=== PATIENT | male | born 1975 | race African-American/Black ===

== ENCOUNTER → 2017-11-01 | Outpatient (CLI) | payer MEDICARE ==
[2017-11-01 17:49] LABS: ALANINE AMINOTRANSFERASE 27 U/L (21-72); ALBUMIN 4.1 g/dL (3.5-5.0); ALKALINE PHOSPHATASE 65 U/L (38-126); ANION GAP 10 (5-19); ASPARTATE AMINO TRANSFERASE 20 U/L (17-59); BILIRUBIN,DIRECT 0.4 mg/dL (0.0-0.4); BILIRUBIN,TOTAL 0.4 mg/dL (0.2-1.3); BLOOD UREA NITROGEN 14 mg/dL (7-20); CALCIUM 9.7 mg/dL (8.4-10.2); CARBON DIOXIDE 30 mmol/L (22-30); CHLORIDE 102 mmol/L (98-107); CHOLESTEROL 177.51 mg/dL (0-200); GLUCOSE 83 mg/dL (75-110); POTASSIUM 4.1 mmol/L (3.6-5.0); TOTAL PROTEIN 7.5 g/dL (6.3-8.2); TRIGLYCERIDES 127 mg/dL (<150)
[2017-11-01 18:00] LABS: DIRECT LDL 113 mg/dL (<100)
[2017-11-03 12:37] LABS: CREATININE URINE 227.5 mg/dL (Not Estab.)
[2017-11-03 13:55] LABS: MICROALBUMIN URINE 1097.2 ug/mL (Not Estab.)
== END ==
LOC: OD 16:23
PROVIDERS: ATTEND Family Medicine
DX: E11.9 Type 2 diabetes mellitus without complications (principal); E78.5 Hyperlipidemia, unspecified; E03.9 Hypothyroidism, unspecified
CPT/HCPCS: 36415; 80053; 80061; 82043; 82570; 83036; 84443

== ENCOUNTER 2018-01-25 22:24 | Observation (INO) | payer MEDICARE ==
--- NOTE | 2018-01-25 23:32 | ER Document Report ---
ED General - General Chief Complaint: Shortness Of Breath Stated Complaint: DIFFICULTY BREATHING Time Seen by Provider: 01/25/18 23:03 Mode of Arrival: Ambulatory Information source: Patient TRAVEL OUTSIDE OF THE [place] IN LAST 30 DAYS: No - HPI Patient complains to provider of: "sick" Onset: Other - few days ago Onset/Duration: Gradual Associated symptoms: Productive cough - tannish sputum, Headache, Nausea. denies: Chest pain, Earache, Fever, Shortness of breath, Sweating, Weakness Exacerbated by: Denies Relieved by: Denies Recently seen / treated by doctor: No Notes: 42-year-old -Irish male presents with a complaint of very sick. He states that he is coughing up brownish sputum. He states that his son came home with a viral infection and passed it to him. Patient denies fevers, chest pain, diarrhea, abdominal pain. Past medical history significant for morbid obesity hypertension diabetes high cholesterol hypothyroidism pituitary tumor patients on CPAP nightly for obstructive sleep apnea - Related Data Allergies/Adverse Reactions: No Known Allergies Allergy (Unverified 01/25/18 23:59) Past Medical History - General Information source: Patient - Social History Smoking Status: Never Smoker Frequency of alcohol use: Social Drug Abuse: None Lives with: Family Family History: Hypertension Patient has suicidal ideation: No - Past Medical History Cardiac Medical History: Reports: None Pulmonary Medical History: Reports: Hx Sleep Apnea EENT Medical History: Reports: None Neurological Medical History: Reports: None Endocrine Medical History: Reports: Hx Diabetes Mellitus Type 2 Renal/ Medical History: Reports: None Malignancy Medical History: Reports None GI Medical History: Reports: None Musculoskeltal Medical History: Reports None Skin Medical History: Reports None Psychiatric Medical History: Reports: None Traumatic Medical History: Reports: None Infectious Medical History: Reports: None Review of Systems - Review of Systems Constitutional: No symptoms reported EENT: No symptoms reported Cardiovascular: See HPI Respiratory: See HPI Gastrointestinal: Nausea Genitourinary: No symptoms reported Male Genitourinary: No symptoms reported Musculoskeletal: No symptoms reported Skin: See HPI, Lesions Hematologic/Lymphatic: No symptoms reported Neurological/Psychological: No symptoms reported Physical Exam - Vital signs Vitals: Resp Pulse Ox 27 H 98 01/25/18 23:54 01/25/18 23:54 Pulse ox 97% on room air respiratory rate 18 blood pressure 190/113 temperature 98.7 - Notes Notes: PHYSICAL EXAMINATION: GENERAL: Well-appearing, well-nourished and in no acute distress. Patient is morbidly obese he sitting up in his bed playing games on his phone in no acute distress HEAD: Atraumatic, normocephalic. EYES: Pupils equal round and reactive to light, extraocular movements intact, sclera anicteric, conjunctiva are normal. ENT: Nares patent, oropharynx clear without exudates. Moist mucous membranes. biLateral TMs within normal limits NECK: Normal range of motion, supple without lymphadenopathy LUNGS: Breath sounds clear to auscultation bilaterally and equal. No wheezes rales or rhonchi. HEART: Regular rate and rhythm without murmurs ABDOMEN: Morbidly obese. Multiple 1 cm scarred carbuncles over abd wall. Soft, nontender, nondistended abdomen. No guarding, no rebound. No masses appreciated. Musculoskeletal: Normal range of motion, no pitting or edema. No cyanosis. NEUROLOGICAL: Cranial nerves grossly intact. Normal speech, normal gait. Normal sensory, motor exams PSYCH: Normal mood, normal affect. SKIN: Warm, Dry, normal turgor. Course - Re-evaluation Re-evalutation: 01/26/18 00:19 His blood pressure is now 190/81. I did not give him medications in addition to his lisinopril and hydrochlorothiazide that he takes on a daily basis. I did note when looking through the patient's medications that he is taking an oral decongestant with phenylephrine in it. I did tell him please do not take this medication anymore, it could cause additional hypertension. Patient states his last dose was approximately 8 PM tonight. 01/26/18 01:06 Did review the chest x-ray and I feel that there is some vascular congestion as well as cardiomegaly. 01/26/18 01:11 Labs- All tests 24 hr 01/25/18 01/25/18 01/25/18 23:50 23:50 23:50 WBC 9.8 RBC 4.56 Hgb 11.6 L Hct 35.8 L MCV 79 L MCH 25.5 L MCHC 32.5 RDW 15.7 H Plt Count 257 Seg Neutrophils % 59.1 Lymphocytes % 25.0 Monocytes % 8.5 Eosinophils % 5.8 Basophils % 1.6 Absolute Neutrophils 5.8 Absolute Lymphocytes 2.5 Absolute Monocytes 0.8 Absolute Eosinophils 0.6 Absolute Basophils 0.2 Sodium 143.3 Potassium 3.9 Chloride 105 Carbon Dioxide 30 Anion Gap 8 BUN 15 Creatinine 0.99 Est GFR ( Amer) > 60 Est GFR (Non-Af Amer) > 60 Glucose 123 H Calcium 9.4 Total Bilirubin 0.1 L Direct Bilirubin 0.1 Neonat Total Bilirubin Not Reportable Neonat Direct Bilirubin Not Reportable Neonat Indirect Bili Not Reportable AST 19 ALT 25 Alkaline Phosphatase 82 Troponin I 0.014 NT-Pro-B Natriuret Pep 203 H Total Protein 6.7 Albumin 3.6 Urine Color Urine Appearance Urine pH Ur Specific [place] Urine Protein Urine Glucose (UA) Urine Ketones Urine Blood Urine Nitrite Urine Bilirubin Urine Urobilinogen Ur Leukocyte Esterase Urine WBC (Auto) Urine RBC (Auto) Squamous Epi Cells Auto Urine Mucus (Auto) Urine Ascorbic Acid 01/25/18 23:50 WBC RBC Hgb Hct MCV MCH MCHC RDW Plt Count Seg Neutrophils % Lymphocytes % Monocytes % Eosinophils % Basophils % Absolute Neutrophils Absolute Lymphocytes Absolute Monocytes Absolute Eosinophils Absolute Basophils Sodium Potassium Chloride Carbon Dioxide Anion Gap BUN Creatinine Est GFR ( Amer) Est GFR (Non-Af Amer) Glucose Calcium Total Bilirubin Direct Bilirubin Neonat Total Bilirubin Neonat Direct Bilirubin Neonat Indirect Bili AST ALT Alkaline Phosphatase Troponin I NT-Pro-B Natriuret Pep Total Protein Albumin Urine Color YELLOW Urine Appearance CLEAR Urine pH 6.0 Ur Specific [place] 1.015 Urine Protein 100 H Urine Glucose (UA) NEGATIVE Urine Ketones NEGATIVE Urine Blood NEGATIVE Urine Nitrite NEGATIVE Urine Bilirubin NEGATIVE Urine Urobilinogen NEGATIVE Ur Leukocyte Esterase NEGATIVE Urine WBC (Auto) 2 Urine RBC (Auto) 2 Squamous Epi Cells Auto 1 Urine Mucus (Auto) RARE Urine Ascorbic Acid NEGATIVE Chest X-Ray 01/26/18 00:00 IMPRESSION: 1. No acute pulmonary process identified. 01/26/18 01:11 Patient does have mild vascular congestion as well as cardiomegaly on exam. Risk factors include obesity hypertension diabetes high cholesterol as well as obstructive sleep apnea. He does have continued hypertension which may partially be due to his phenylephrine ingestion. I did talk to the hospitalist will put him into the hospital bring down his blood pressure rule him out for cardiac event. Pt. is agreeable to this plan. - Vital Signs Vital signs: Temp Pulse Resp BP Pulse Ox 19 194/111 H 98 01/26/18 00:41 01/26/18 00:41 01/26/18 00:41 - Laboratory Result Diagrams: 01/25/18 23:50 01/25/18 23:50 Laboratory results interpreted by me: 01/25/18 01/25/18 01/25/18 23:50 23:50 23:50 Hgb 11.6 L Hct 35.8 L MCV 79 L MCH 25.5 L RDW 15.7 H Glucose 123 H Total Bilirubin 0.1 L NT-Pro-B Natriuret Pep 203 H Urine Protein 01/25/18 23:50 Hgb Hct MCV MCH RDW Glucose Total Bilirubin NT-Pro-B Natriuret Pep Urine Protein 100 H Discharge - Discharge Clinical Impression: Hypertensive urgency, Carbuncle and furuncle Condition: Stable Disposition: ADMITTED OBSERVATION Admitting Provider: Hospitalist - Dr. Paul Unit Admitted: Telemetry Referrals: IRINA SILVA MD [Primary Care Provider] - Follow up as needed
[2018-01-26 00:10] LABS: ABSOLUTE BASOPHILS # (AUTO) 0.2 10^3/uL (0.0-0.2); ABSOLUTE EOSINOPHILS # (AUTO) 0.6 10^3/uL (0.0-0.6); ABSOLUTE LYMPHOCYTES (AUTO) 2.5 10^3/uL (0.5-4.7); ABSOLUTE MONOCYTES (AUTO) 0.8 10^3/uL (0.1-1.4); ABSOLUTE NEUT (AUTO) 5.8 10^3/uL (1.7-8.2); BASOPHILS % (AUTO) 1.6 % (0-2); EOSINOPHILS % (AUTO) 5.8 % (0-6); HEMATOCRIT 35.8 % (37.9-51.0); HEMOGLOBIN 11.6 g/dL (13.5-17.0); MEAN CORPUSCULAR HEMOGLOBIN 25.5 pg (27.0-33.4); MEAN CORPUSCULAR HGB CONC 32.5 g/dL (32.0-36.0); MEAN CORPUSCULAR VOLUME 79 fl (80-97); MONOCYTES % (AUTO) 8.5 % (3-13); PLATELET COUNT 257 10^3/uL (150-450); RED BLOOD COUNT 4.56 10^6/uL (4.35-5.55); RED CELL DISTRIBUTION WIDTH 15.7 % (11.5-14.0); SEGMENTED NEUTROPHILS % (AUTO) 59.1 % (42-78); TOTAL CELLS COUNTED % (AUTO) 100 %; WHITE BLOOD COUNT 9.8 10^3/uL (4.0-10.5)
[2018-01-26] MEDS ORDERED: SULFAMETHOXAZOLE/TRIMETHOPRIM 800-160 MG TABLET PO ONE (00:20)
[2018-01-26 00:23] LABS: ALANINE AMINOTRANSFERASE 25 U/L (21-72); ALBUMIN 3.6 g/dL (3.5-5.0); ALKALINE PHOSPHATASE 82 U/L (38-126); ANION GAP 8 (5-19); ASPARTATE AMINO TRANSFERASE 19 U/L (17-59); BILIRUBIN,DIRECT 0.1 mg/dL (0.0-0.4); BILIRUBIN,TOTAL 0.1 mg/dL (0.2-1.3); BLOOD UREA NITROGEN 15 mg/dL (7-20); CALCIUM 9.4 mg/dL (8.4-10.2); CARBON DIOXIDE 30 mmol/L (22-30); CHLORIDE 105 mmol/L (98-107); GLUCOSE 123 mg/dL (75-110); POTASSIUM 3.9 mmol/L (3.6-5.0); SODIUM 143.3 mmol/L (137-145); TOTAL PROTEIN 6.7 g/dL (6.3-8.2)
[2018-01-26 00:24] LABS: APPEARANCE,URINE CLEAR; BILIRUBIN,URINE NEGATIVE (NEGATIVE); COLOR,URINE YELLOW; GLUCOSE, URINE NEGATIVE (NEGATIVE); KETONES,URINE NEGATIVE (NEGATIVE); LEUKOCYTE ESTERASE,URINE NEGATIVE (NEGATIVE); NITRITE,URINE NEGATIVE (NEGATIVE); PROTEIN,URINE 100 mg/dL (NEGATIVE); URINE SPECIFIC GRAVITY 1.015; UROBILINOGEN,URINE NEGATIVE mg/dL (<2.0)
[2018-01-26 00:35] LABS: TROPONIN I 0.014 ng/mL
--- NOTE | 2018-01-26 00:51 | RADIOLOGY REPORT (SQ) ---
EXAM DESCRIPTION: Single view of the chest CLINICAL HISTORY: sob COMPARISON: None. FINDINGS: Single frontal view of the chest. Mild prominence of the cardiac silhouette may be related to AP technique. Low lung volumes. Leads overlie the chest. No consolidation, pneumothorax, or pleural effusion. No displaced rib fractures identified. Upper abdominal soft tissues are unremarkable. IMPRESSION: 1. No acute pulmonary process identified.
[2018-01-26] MEDS ORDERED: LABETALOL HCL INJ 20 MG/4 ML DISP.SYRIN IV ONE ×2 (00:54→03:17)
[2018-01-26] MEDS ORDERED: ACETAMINOPHEN 325 MG TABLET PO PRN (01:13)
[2018-01-26] MEDS ORDERED: HYDRALAZINE HCL 50 MG TABLET PO ONE (01:30)
[2018-01-26] MEDS ORDERED: METOPROLOL TARTRATE 50 MG TABLET PO ONE (01:30)
--- NOTE | 2018-01-26 01:30 | PDOC H&P ---
History of Present Illness Admission Date/PCP: IRINA SILVA MD History of Present Illness: TRAMAINE ALFARO is a 42 year old black male patient with multiple comorbidities which includes hypertension, DM, HLD, CHINO, pituitary tumor, hypothyroidism and morbid obesity, presented with chief complaint of not feeling well. Patient also endorses cough productive of brownish sputum. Patient states that he sent him home with a viral infection and passed it to him. At the time of presentation patient found to have markedly elevated blood pressure of 198/113 for which she was given a dose of labetalol by the ER attending. Patient denies any chest pain, chills, fever, palpitation, diaphoresis, nausea, vomiting or diarrhea. Patient has been taking [id number] ephedrine which might explain for his spiking blood pressure. Past Medical History Cardiac Medical History: Reports: None, Hyperlipidema, Hypertension Pulmonary Medical History: Reports: Sleep Apnea EENT Medical History: Reports: None Neurological Medical History: Reports: None Endocrine Medical History: Reports: Diabetes Mellitus Type 2, Hypothyroidism Renal/ Medical History: Reports: None Malignancy Medical History: Reports: None GI Medical History: Reports: None Musculoskeltal Medical History: Reports: None Skin Medical History: Reports: None Psychiatric Medical History: Reports: None Traumatic Medical History: Reports: None Infectious Medical History: Reports: None Past Surgical History Past Surgical History: Reports: None Social History Lives with: Family Smoking Status: Never Smoker Frequency of Alcohol Use: None Drugs: None - Advance Directive Resuscitation Status: Full Code Family History Family History: Hypertension Parental Family History Reviewed: Yes Children Family History Reviewed: Yes Sibling(s) Family History Reviewed.: Yes Medication/Allergy Allergies/Adverse Reactions: No Known Allergies Allergy (Unverified 01/25/18 23:59) Review of Systems Constitutional: PRESENT: as per HPI Eyes: PRESENT: as per HPI Cardiovascular: PRESENT: as per HPI Respiratory: PRESENT: as per HPI Gastrointestinal: PRESENT: as per HPI Neurological: PRESENT: as per HPI Physical Exam Vital Signs: Temp Pulse Resp BP Pulse Ox 19 194/111 H 98 01/26/18 00:41 01/26/18 00:41 01/26/18 00:41 General appearance: PRESENT: no acute distress Head exam: PRESENT: atraumatic, normocephalic Mouth exam: PRESENT: dry mucosa Respiratory exam: PRESENT: clear to auscultation christina. ABSENT: rales, rhonchi, wheezes Cardiovascular exam: PRESENT: RRR. ABSENT: diastolic murmur, rubs, systolic murmur GI/Abdominal exam: PRESENT: other - Morbidly obese Neurological exam: PRESENT: alert, awake, oriented to time, oriented to situation Results Laboratory Results: 01/25/18 23:50 01/25/18 23:50 01/25/18 01/25/18 01/25/18 23:50 23:50 23:50 WBC 9.8 RBC 4.56 Hgb 11.6 L Hct 35.8 L MCV 79 L MCH 25.5 L MCHC 32.5 RDW 15.7 H Plt Count 257 Seg Neutrophils % 59.1 Lymphocytes % 25.0 Monocytes % 8.5 Eosinophils % 5.8 Basophils % 1.6 Absolute Neutrophils 5.8 Absolute Lymphocytes 2.5 Absolute Monocytes 0.8 Absolute Eosinophils 0.6 Absolute Basophils 0.2 Sodium 143.3 Potassium 3.9 Chloride 105 Carbon Dioxide 30 Anion Gap 8 BUN 15 Creatinine 0.99 Est GFR ( Amer) > 60 Est GFR (Non-Af Amer) > 60 Glucose 123 H Calcium 9.4 Total Bilirubin 0.1 L AST 19 ALT 25 Alkaline Phosphatase 82 Total Protein 6.7 Albumin 3.6 Urine Color YELLOW Urine Appearance CLEAR Urine pH 6.0 Ur Specific [place] 1.015 Urine Protein 100 H Urine Glucose (UA) NEGATIVE Urine Ketones NEGATIVE Urine Blood NEGATIVE Urine Nitrite NEGATIVE Ur Leukocyte Esterase NEGATIVE Urine WBC (Auto) 2 Urine RBC (Auto) 2 01/25/18 23:50 Troponin I 0.014 NT-Pro-B Natriuret Pep 203 H Impressions: Chest X-Ray 01/26/18 00:00 IMPRESSION: 1. No acute pulmonary process identified. Assessment & Plan - Diagnosis (1) Hypertensive urgency Is this a current diagnosis for this admission?: Yes Plan: Patient has been started on metoprolol and hydralazine (2) Hypothyroidism Qualifiers: Hypothyroidism type: acquired Qualified Code(s): E03.9 - Hypothyroidism, unspecified Is this a current diagnosis for this admission?: Yes Plan: Continue Synthroid (3) Hyperlipidemia Qualifiers: Hyperlipidemia type: unspecified Qualified Code(s): E78.5 - Hyperlipidemia , unspecified Is this a current diagnosis for this admission?: Yes Plan: Continue home statin (4) Carbuncle and furuncle Is this a current diagnosis for this admission?: Yes Plan: Has been started on p.o. Bactrim. - Time Critical Time spent with patient: 25-34 minutes
[2018-01-26] MEDS ORDERED: HYDRALAZINE HCL INJ/PF 20 MG/1 ML SDV ONE (05:15)
[2018-01-26] MEDS ORDERED: HYDRALAZINE HCL INJ/PF 20 MG/1 ML SDV IV ONE (05:30)
[2018-01-26] MEDS ORDERED: INSULIN LISPRO 100 UNIT/ML 3 ML VIAL SUBCUT PRN (05:44)
[2018-01-26] MEDS ORDERED: DEXTROSE 40% GEL 15 GM TUBE PO PRN ×2 (05:44)
[2018-01-26] MEDS ORDERED: DEXTROSE 50%-WATER 25 GM/50 ML DISP.SYRIN IV PRN ×2 (05:44)
[2018-01-26] MEDS ORDERED: GLUCAGON,HUMAN RECOMB 1 MG INJ IM PRN (05:44)
[2018-01-26] MEDS: HYDRALAZINE HCL 50 MG TABLET PO SCH ×3 (06:51→21:26)
[2018-01-26] MEDS: LANSOPRAZOLE 30 MG TAB.RAP.DR PO SCH (06:52)
[2018-01-26] MEDS ORDERED: ENOXAPARIN SODIUM INJ 40 MG/0.4 ML DISP.SYRIN SUBCUT SCH (10:00)
[2018-01-26] MEDS: SULFAMETHOXAZOLE/TRIMETHOPRIM 800-160 MG TABLET PO SCH ×2 (10:13→18:54)
[2018-01-26] MEDS: METOPROLOL TARTRATE 50 MG TABLET PO SCH ×2 (10:13→21:27)
[2018-01-26] MEDS: METFORMIN HCL 500 MG TABLET PO SCH ×2 (10:13→16:06)
[2018-01-26] MEDS ORDERED: HYDROCODONE/ACETAMINOPHEN 10-325 MG TABLET PO PRN (15:27)
[2018-01-26] MEDS ORDERED: (PENDING PHARMACY ID) (Lisinopril/Hydrochlorothiazide [Lisinopril-Hctz 20-25 Mg Tab] 1 EAC PO SCH (15:30)
[2018-01-26] MEDS ORDERED: LEVOTHYROXINE SODIUM 125 MCG PO SCH (15:30)
[2018-01-26] MEDS ORDERED: PROMETHAZINE HCL 25 MG TABLET PO PRN (21:03)
--- NOTE | 2018-01-26 21:07 | EKG REPORT ---
SEVERITY:- ABNORMAL ECG - SINUS RHYTHM ABNORMAL T, CONSIDER ISCHEMIA, LATERAL LEADS : Confirmed by: Darlyn Mackay 26-Jan-2018 18:06:31
[2018-01-26] MEDS: SODIUM CHLORIDE NASAL SPRAY 44 ML NASL SCH (21:27)
[2018-01-26] MEDS: GUAIFENESIN 600 MG TABLET.SA PO SCH (21:27)
[2018-01-26] MEDS ORDERED: ATORVASTATIN CALCIUM 10 MG TABLET PO SCH (22:00)
[2018-01-26] MEDS ORDERED: (PENDING PHARMACY ID) (Pravastatin Sodium [Pravachol] 40 MG) PO SCH (22:00)
[2018-01-26] MEDS ORDERED: BROMOCRIPTINE MESYLATE 5 MG PO SCH (22:00)
[2018-01-27] MEDS: LANSOPRAZOLE 30 MG TAB.RAP.DR PO SCH (05:45)
[2018-01-27] MEDS: HYDRALAZINE HCL 50 MG TABLET PO SCH (05:46)
[2018-01-27] MEDS ORDERED: LANSOPRAZOLE 15 MG TAB.RAP.DR PO SCH (06:00)
[2018-01-27] MEDS ORDERED: LEVOTHYROXINE SODIUM 0.025 MG TABLET PO SCH (06:00)
[2018-01-27] MEDS ORDERED: LEVOTHYROXINE SODIUM 0.1 MG TABLET PO SCH (06:00)
--- NOTE | 2018-01-27 07:40 | PDOC DISCHARGE SUMMARY ---
General - Admit/Disc Date/PCP Admission Date/Primary Care Provider: 01/26/18 02:39 IRINA SILVA MD Discharge Date: 01/27/18 - Discharge Diagnosis (1) Hypertensive urgency Is this a current diagnosis for this admission?: Yes (2) Morbid exogenous obesity Is this a current diagnosis for this admission?: Yes (3) Carbuncle and furuncle Is this a current diagnosis for this admission?: Yes (4) Hyperlipidemia Is this a current diagnosis for this admission?: Yes (5) Hypothyroidism Is this a current diagnosis for this admission?: Yes - Additional Information Resuscitation Status: Full Code Discharge Diet: Cardiac Discharge Activity: Activity As Tolerated Prescriptions: Hydralazine HCl [Apresoline 50 mg Tablet] 50 mg PO Q8 30 Days #90 tablet Metoprolol Tartrate [Lopressor 50 mg Tablet] 50 mg PO Q12 30 Days #60 tablet Sulfamethoxazole/Trimethoprim [Septra-Ds 800-160 mg Tablet] 1 tab PO BID 7 Days #14 tablet Home Medications: Bromocriptine Mesylate [Parlodel] 5 mg PO Q12 01/26/18 Hydrocodone/Acetaminophen [Hydrocodone-Acetamin 10-325 mg] 1 each PO Q6HP PRN Levothyroxine Sodium [Tirosint] 125 mcg PO Q6AM 01/26/18 Lisinopril/Hydrochlorothiazide [Lisinopril-Hctz 20-25 mg Tab] 1 each PO DAILY Metformin HCl [Glucophage 500 mg Tablet] 500 mg PO BIDACBS 01/26/18 Pantoprazole Sodium [Protonix] 20 mg PO DAILY 01/26/18 Pravastatin Sodium [Pravachol] 40 mg PO QHS 01/26/18 Guaifenesin [Mucinex Sr 600 mg Tablet.sa] 1,200 mg PO Q12 tablet.sa 01/27/18 Hydralazine HCl [Apresoline 50 mg Tablet] 50 mg PO Q8 30 Days #90 tablet Metoprolol Tartrate [Lopressor 50 mg Tablet] 50 mg PO Q12 30 Days #60 tablet Sodium Chloride [[place] 44 ml Bottle] 1 spray NASL ACHS bottle 01/27 Sulfamethoxazole/Trimethoprim [Septra-Ds 800-160 mg Tablet] 1 tab PO BID 7 Days #14 tablet 01/27/18 History of Present Illness Patient complains of: Patient was admitted with productive cough as well as drainage from a carbuncle. He was found to have an elevated blood pressure of 198/113. History of Present Illness: TRAMAINE ALFARO is a 42 year old black male patient with multiple comorbidities which includes hypertension, DM, HLD, CHINO, pituitary tumor, hypothyroidism and morbid obesity, presented with chief complaint of not feeling well. Patient also endorses cough productive of brownish sputum. Patient states that he sent him home with a viral infection and passed it to him. At the time of presentation patient found to have markedly elevated blood pressure of 198/113 for which she was given a dose of labetalol by the ER attending. Patient denies any chest pain, chills, fever, palpitation, diaphoresis, nausea, vomiting or diarrhea. Patient has been taking wggo-ert-nccveic ephedrine which might explain for his spiking blood pressure. Hospital Course Hospital Course: Patient was admitted with productive cough as well as drainage from a carbuncle. He was found to have an elevated blood pressure of 198/113. She was monitored on telemetry floor. He is antihypertensives were adjusted. He is medications where treat with improvement in his blood pressure. He was also started on antibiotic for his infected carbuncle. His blood pressure is improved and at this time it is felt that he can be discharged home for outpatient follow-up with his primary care physician for further adjustment of his antihypertensives as needed Physical Exam Vital Signs: Temp Pulse Resp BP Pulse Ox 98.6 F 65 13 133/68 H 99 01/27/18 04:00 01/27/18 04:00 01/27/18 04:28 01/27/18 04:00 01/27/18 04:00 Intake & Output 01/26/18 01/27/18 01/28/18 06:59 06:59 06:59 Intake Total 1908 Balance 1908 Weight 201.5 kg 202.4 kg General appearance: PRESENT: no acute distress, morbidly obese, well-developed Head exam: PRESENT: atraumatic, normocephalic Eye exam: PRESENT: conjunctiva pink, PERRLA. ABSENT: scleral icterus Ear exam: PRESENT: normal external ear exam Mouth exam: PRESENT: moist, tongue midline Neck exam: ABSENT: carotid bruit, JVD, lymphadenopathy, thyromegaly Respiratory exam: PRESENT: clear to auscultation christina. ABSENT: rales, rhonchi, wheezes Cardiovascular exam: PRESENT: RRR. ABSENT: diastolic murmur, rubs, systolic murmur Pulses: PRESENT: normal dorsalis pedis pul Vascular exam: PRESENT: normal capillary refill GI/Abdominal exam: PRESENT: normal bowel sounds, soft. ABSENT: distended, guarding, mass, organolmegaly, rebound, tenderness Rectal exam: PRESENT: deferred Extremities exam: PRESENT: full ROM. ABSENT: calf tenderness, clubbing, pedal edema Neurological exam: PRESENT: alert, awake, oriented to person, oriented to place , oriented to time, oriented to situation, CN II-XII grossly intact. ABSENT: motor sensory deficit Psychiatric exam: PRESENT: appropriate affect, normal mood. ABSENT: homicidal ideation, suicidal ideation Skin exam: PRESENT: dry, intact, warm, other - discharge from lower abdomen. ABSENT: cyanosis, rash Results Laboratory Results: 01/26/18 01/27/18 06:10 03:44 Troponin I 0.018 0.017 Impressions: Chest X-Ray 01/26/18 00:00 IMPRESSION: 1. No acute pulmonary process identified. Qualifiers - * PATIENT BEING DISCHARGED WITH ANY OF THE FOLLOWING DIAGNOSIS: No
[2018-01-27] MEDS ORDERED: HYDROCHLOROTHIAZIDE 25 MG TABLET PO SCH (10:00)
[2018-01-27] MEDS ORDERED: LISINOPRIL 10 MG TABLET PO SCH (10:00)
[2018-01-27] MEDS ORDERED: (PENDING PHARMACY ID) (Pantoprazole Sodium [Protonix] 20 MG) PO SCH (10:00)
[2018-01-27] MEDS: METFORMIN HCL 500 MG TABLET PO SCH (10:03)
[2018-01-27] MEDS: SULFAMETHOXAZOLE/TRIMETHOPRIM 800-160 MG TABLET PO SCH (10:03)
[2018-01-27] MEDS: GUAIFENESIN 600 MG TABLET.SA PO SCH (10:04)
[2018-01-27] MEDS: METOPROLOL TARTRATE 50 MG TABLET PO SCH (10:04)
[2018-01-27] MEDS: SODIUM CHLORIDE NASAL SPRAY 44 ML NASL SCH (10:09)
[2018-01-27 11:08] VITALS: BP 148/80
== END 2018-01-27 12:05 | disposition home or self-care (01) ==
LOC: ER 22:24 → EH 01-26 02:39 → 4N 01-26 06:00
PROVIDERS: ADMIT Internal Medicine; ATTEND Internal Medicine
DX: I16.0 Hypertensive urgency (principal); E66.01 Morbid (severe) obesity due to excess calories; L02.231 Carbuncle of abdominal wall; L02.92 Furuncle, unspecified; E78.5 Hyperlipidemia, unspecified; E03.9 Hypothyroidism, unspecified; R05 Cough; G47.33 Obstructive sleep apnea (adult) (pediatric); E11.9 Type 2 diabetes mellitus without complications; Z68.44 Body mass index [BMI] 60.0-69.9, adult; Z82.49 Family history of ischemic heart disease and other diseases of the circulatory system; Z79.899 Other long term (current) drug therapy; Z79.84 Long term (current) use of oral hypoglycemic drugs
CPT/HCPCS: 93005; 99285; 96374; 96375; 36415 ×3; 82962 ×2; 85025; 80053; 81001; 84484 ×3; 83036 ×2; 83880; 71045; 93010; 94660 ×2; G0378 ×3; A9270 ×18; J3490 ×4; J0360; J1650

== ENCOUNTER → 2018-02-20 | Outpatient (CLI) | payer MEDICARE ==
[2018-02-20 14:04] LABS: ABSOLUTE BASOPHILS # (AUTO) 0.1 10^3/uL (0.0-0.2); ABSOLUTE EOSINOPHILS # (AUTO) 0.4 10^3/uL (0.0-0.6); ABSOLUTE LYMPHOCYTES (AUTO) 2.2 10^3/uL (0.5-4.7); ABSOLUTE MONOCYTES (AUTO) 0.6 10^3/uL (0.1-1.4); ABSOLUTE NEUT (AUTO) 4.9 10^3/uL (1.7-8.2); BASOPHILS % (AUTO) 1.2 % (0-2); EOSINOPHILS % (AUTO) 4.4 % (0-6); HEMATOCRIT 35.8 % (37.9-51.0); HEMOGLOBIN 11.8 g/dL (13.5-17.0); LYMPHOCYTES % (AUTO) 26.5 % (13-45); MEAN CORPUSCULAR HEMOGLOBIN 25.7 pg (27.0-33.4); MEAN CORPUSCULAR HGB CONC 33.1 g/dL (32.0-36.0); MEAN CORPUSCULAR VOLUME 78 fl (80-97); MONOCYTES % (AUTO) 7.9 % (3-13); PLATELET COUNT 267 10^3/uL (150-450); RED BLOOD COUNT 4.61 10^6/uL (4.35-5.55); RED CELL DISTRIBUTION WIDTH 16.8 % (11.5-14.0); TOTAL CELLS COUNTED % (AUTO) 100 %; WHITE BLOOD COUNT 8.2 10^3/uL (4.0-10.5)
[2018-02-20 14:20] LABS: ALANINE AMINOTRANSFERASE 27 U/L (21-72); ALKALINE PHOSPHATASE 56 U/L (38-126); ANION GAP 11 (5-19); ASPARTATE AMINO TRANSFERASE 21 U/L (17-59); BILIRUBIN,DIRECT 0.2 mg/dL (0.0-0.4); BILIRUBIN,TOTAL 0.3 mg/dL (0.2-1.3); BLOOD UREA NITROGEN 15 mg/dL (7-20); CALCIUM 9.7 mg/dL (8.4-10.2); CARBON DIOXIDE 27 mmol/L (22-30); CHLORIDE 106 mmol/L (98-107); CHOLESTEROL 131.51 mg/dL (0-200); GLUCOSE 93 mg/dL (75-110); POTASSIUM 4.4 mmol/L (3.6-5.0); SODIUM 144.2 mmol/L (137-145); TOTAL PROTEIN 7.2 g/dL (6.3-8.2); TRIGLYCERIDES 118 mg/dL (<150)
[2018-02-20 14:32] LABS: DIRECT LDL 60 mg/dL (<100)
--- NOTE | 2018-02-20 14:53 | RADIOLOGY REPORT (SQ) ---
EXAM DESCRIPTION: CHEST PA/LATERAL COMPLETED DATE/TIME: 02/20/2018 1:18 pm REASON FOR STUDY: COUGH;ACUTE BRONCHITIS, UNSPEC COMPARISON: AP chest 01/26/2018 EXAM PARAMETERS: NUMBER OF VIEWS: two views TECHNIQUE: Digital Frontal and Lateral radiographic views of the chest acquired. RADIATION DOSE: NA LIMITATIONS: Large patient, long exposure times with motion artifact on lateral film FINDINGS: LUNGS AND PLEURA: There is diffuse patchy bilateral airspace disease, edema versus pneumon ia. No gross pleural effusions. No pneumothorax. MEDIASTINUM AND HILAR STRUCTURES: No masses or contour abnormalities. HEART AND VASCULAR STRUCTURES: Mild cardiomegaly BONES: No acute findings. HARDWARE: None in the chest. OTHER: No other significant finding. IMPRESSION: Patchy bilateral mid and lower lung airspace disease worrisome for pneumonia or pulmonar y edema. Mild Cardiomegaly. TECHNICAL DOCUMENTATION: JOB ID: [id number] [employer]- All Rights Reserved Reading location - IP/workstation name: [email or web address]
[2018-02-21 11:39] LABS: CREATININE URINE 85.7 mg/dL (Not Estab.)
[2018-02-21 13:03] LABS: MICROALBUMIN URINE 457.2 ug/mL (Not Estab.)
== END ==
LOC: OD 12:45
PROVIDERS: ATTEND Family Medicine Geriatric Medicine
DX: E11.9 Type 2 diabetes mellitus without complications (principal); E03.9 Hypothyroidism, unspecified
CPT/HCPCS: 36415; 71046; 80053; 80061; 82043; 82570; 83036; 84443; 85025

== ENCOUNTER → 2018-02-28 | Outpatient (CLI) | payer MEDICARE ==
--- NOTE | 2018-02-28 20:46 | XCELERA REPORT ---
[address] [address] Transthoracic Echocardiogram Report Name: TRAMAINE ALFARO Age: 42 yrs Gender: Male : 1975 Patient Status: Outpatient Patient Location: [facility] Study Date: 02/28/2018 01:26 PM Height: 69 in Weight: 442 lb BSA: 2.9 m2 Procedure: A complete two-dimensional transthoracic echocardiogram was performed (2D, M-mode, spectral and color flow Doppler). The study was technically difficult with many images being suboptimal in quality. Reason For Study: CARDIOMEGALY Ordering Physician: SADE CASTRO Performed By: Zeinab Hanson Interpretation Summary The left ventricular ejection fraction is normal. There is mild concentric left ventricular hypertrophy. The left ventricle is grossly normal size. Doppler measurements suggest pseudonormalized left ventricular relaxation, which is associated with grade II/IV or mild to moderate diastolic dysfunction Wall motion cannot be accurately commented on, but no definite regional wall motion abnormalities noted. The right ventricular systolic function is normal. The right ventricle is grossly normal size. The left atrium is moderately dilated. The right atrium is normal in size There is no mitral valve stenosis. There is a trace amount of mitral regurgitation There is no aortic valve stenosis No aortic regurgitation is present. There is a trace or physiologic amount of tricuspid regurgitation Tricuspid regurgitation jet envelope not well defined to measure RV systolic pressure accurately. The aortic root is not well visualized but is probably normal size. The inferior vena cava appeared normal and decreased > 50% with respiration (RAP 5-10 mmHg) There is no pericardial effusion. MMode/2D Measurements & Calculations RVDd: 3.2 cm LVIDd: 5.8 cm FS: 32.9 % Ao root diam: 2.9 cm IVSd: 1.0 cm LVIDs: 3.9 cm EDV(Teich): 166.4 ml LVPWd: 1.0 cm ESV(Teich): 65.6 ml Ao root area: 6.6 cm2 EF(Teich): 60.6 % LA dimension: 5.1 cm Doppler Measurements & Calculations MV E max ciara: MV P1/2t max ciara: Ao V2 max: LV V1 max P.0 cm/sec 119.9 cm/sec 150.9 cm/sec 7.9 mmHg MV A max ciara: MV P1/2t: 61.9 msec Ao max PG: LV V1 max: 60.7 cm/sec 9.1 mmHg 140.2 cm/sec MV E/A: 2.0 MVA(P1/2t): 3.6 cm2 MV dec slope: 567.9 cm/sec2 MV dec time: 0.21 sec PA V2 max: 88.8 cm/sec PA max P.2 mmHg Left Ventricle The left ventricle is grossly normal size. There is mild concentric left ventricular hypertrophy. The left ventricular ejection fraction is normal. Doppler measurements suggest pseudonormalized left ventricular relaxation, which is associated with grade II/IV or mild to moderate diastolic dysfunction. Wall motion cannot be accurately commented on, but no definite regional wall motion abnormalities noted. Right Ventricle The right ventricle is grossly normal size. There is normal right ventricular wall thickness. The right ventricular systolic function is normal. Atria The right atrium is normal in size. The left atrium is moderately dilated. Mitral Valve The mitral valve is grossly normal. There is no mitral valve stenosis. There is a trace amount of mitral regurgitation. Aortic Valve The aortic valve is grossly normal. There is no aortic valve stenosis. No aortic regurgitation is present. Tricuspid Valve The tricuspid valve is not well visualized, but is grossly normal. There is no tricuspid stenosis. There is a trace or physiologic amount of tricuspid regurgitation. Tricuspid regurgitation jet envelope not well defined to measure RV systolic pressure accurately. Pulmonic Valve The pulmonic valve is not well visualized. Great Vessels The aortic root is not well visualized but is probably normal size. The inferior vena cava appeared normal and decreased > 50% with respiration (RAP 5-10 mmHg). Effusions There is no pericardial effusion. : SADE CASTRO > Darlyn Mackay
== END ==
LOC: SP 12:32
PROVIDERS: ATTEND Family Medicine Geriatric Medicine
DX: I51.7 Cardiomegaly (principal)
CPT/HCPCS: 93306

== ENCOUNTER → 2018-06-18 | Outpatient (CLI) | payer MEDICARE, MEDICAID ==
[2018-06-18 10:22] LABS: ABSOLUTE BASOPHILS # (AUTO) 0.1 10^3/uL (0.0-0.2); ABSOLUTE EOSINOPHILS # (AUTO) 0.2 10^3/uL (0.0-0.6); ABSOLUTE LYMPHOCYTES (AUTO) 2.3 10^3/uL (0.5-4.7); ABSOLUTE MONOCYTES (AUTO) 0.6 10^3/uL (0.1-1.4); ABSOLUTE NEUT (AUTO) 5.6 10^3/uL (1.7-8.2); BASOPHILS % (AUTO) 1.2 % (0-2); EOSINOPHILS % (AUTO) 2.6 % (0-6); HEMATOCRIT 37.6 % (37.9-51.0); HEMOGLOBIN 12.7 g/dL (13.5-17.0); LYMPHOCYTES % (AUTO) 25.9 % (13-45); MEAN CORPUSCULAR HEMOGLOBIN 25.8 pg (27.0-33.4); MEAN CORPUSCULAR HGB CONC 33.7 g/dL (32.0-36.0); MEAN CORPUSCULAR VOLUME 77 fl (80-97); MONOCYTES % (AUTO) 6.5 % (3-13); PLATELET COUNT 290 10^3/uL (150-450); RED CELL DISTRIBUTION WIDTH 17.3 % (11.5-14.0); SEGMENTED NEUTROPHILS % (AUTO) 63.8 % (42-78); TOTAL CELLS COUNTED % (AUTO) 100 %; WHITE BLOOD COUNT 8.8 10^3/uL (4.0-10.5)
[2018-06-18 10:43] LABS: ALANINE AMINOTRANSFERASE 25 U/L (21-72); ANION GAP 8 (5-19); BLOOD UREA NITROGEN 13 mg/dL (7-20); CALCIUM 9.2 mg/dL (8.4-10.2); CARBON DIOXIDE 29 mmol/L (22-30); CHLORIDE 105 mmol/L (98-107); GLUCOSE 137 mg/dL (75-110); TRIGLYCERIDES 129 mg/dL (<150); URIC ACID 10.1 mg/dL (3.5-8.5)
[2018-06-18 10:53] LABS: DIRECT LDL 77 mg/dL (<100)
--- NOTE | 2018-06-18 11:58 | RADIOLOGY REPORT (SQ) ---
EXAM DESCRIPTION: KNEE LEFT 4 VIEW COMPLETED DATE/TIME: 06/18/2018 9:56 am REASON FOR STUDY: PAIN IN LEFT KNEE M25.562 PAIN IN LEFT KNEE M25.552 PAIN IN LEFT HIP E66.9 OBES ITY, UNSPECIFIED COMPARISON: None. NUMBER OF VIEWS: Four views. TECHNIQUE: AP, lateral, and both oblique radiographic images acquired of the left knee. LIMITATIONS: None. FINDINGS: MINERALIZATION: Normal. BONES: No acute fracture or dislocation. Mild degenerative changes with minimal joint space loss and mild osteophytosis in all 3 compartments. Corticated irregularity at the patellar insertion site on the proximal tibia, likely degenerative. JOINT: No significant joint effusion. SOFT TISSUES: Obesity. No radiopaque foreign body. OTHER: No other significant finding. IMPRESSION: No definite evidence of acute bony abnormality. Corticated irregularity at the patellar tendon insertion on the proximal tibia, likely degenerative. Recommend correlation with point tende rness if concern for acute avulsion injury. Mild tricompartment degenerative change. TECHNICAL DOCUMENTATION: JOB ID: [id number] [employer]- All Rights Reserved Reading location - IP/workstation name: [email or web address]
--- NOTE | 2018-06-18 12:40 | RADIOLOGY REPORT (SQ) ---
EXAM DESCRIPTION: HIP LEFT AP/LATERAL COMPLETED DATE/TIME: 06/18/2018 9:56 am REASON FOR STUDY: PAIN IN LEFT HIP M25.562 PAIN IN LEFT KNEE M25.552 PAIN IN LEFT HIP E66.9 OBESI TY, UNSPECIFIED COMPARISON: None. NUMBER OF VIEWS: Two views. TECHNIQUE: AP pelvis and additional frog-leg view of the left hip. LIMITATIONS: None. FINDINGS: MINERALIZATION: Normal. LEFT HIP: No fracture or dislocation. Partially evaluated heterotopic ossification along the medial aspect of the mid left femoral diaphysis. RIGHT HIP: No fracture or dislocation. No worrisome bone lesions. PUBIS AND ISCHIUM: No fracture. SACRUM: No fracture or dislocation. No worrisome bone lesions. LOWER LUMBAR SPINE: No fracture or dislocation. No worrisome bone lesions. No significant disc disea se. SOFT TISSUES: No findings. OTHER: No other significant finding. IMPRESSION: No evidence of acute osseous abnormality. 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 Recommend dedicated femur films for further characterization. TECHNICAL DOCUMENTATION: JOB ID: [id number] [employer]- All Rights Reserved Reading location - IP/workstation name: [email or web address]
[2018-06-19 13:37] LABS: MICROALBUMIN URINE 943.6 ug/mL (Not Estab.)
== END ==
LOC: RAD 09:33
PROVIDERS: ATTEND Family Medicine Geriatric Medicine
DX: M25.562 Pain in left knee (principal); M25.552 Pain in left hip; E78.5 Hyperlipidemia, unspecified; E11.9 Type 2 diabetes mellitus without complications; I10 Essential (primary) hypertension; E66.9 Obesity, unspecified
CPT/HCPCS: 36415; 80048; 80061; 82043; 82570; 83036; 84443; 84460; 84550; 85025

== ENCOUNTER → 2018-07-12 | Outpatient (CLI) | payer MEDICARE, MEDICAID ==
[2018-07-12 11:10] LABS: ANION GAP 15 (5-19); BLOOD UREA NITROGEN 12 mg/dL (7-20); CALCIUM 9.9 mg/dL (8.4-10.2); CARBON DIOXIDE 26 mmol/L (22-30); CHLORIDE 103 mmol/L (98-107); GLUCOSE 145 mg/dL (75-110); POTASSIUM 4.3 mmol/L (3.6-5.0); SODIUM 143.6 mmol/L (137-145); URIC ACID 8.6 mg/dL (3.5-8.5)
[2018-07-13 17:47] LABS: MICROALBUMIN URINE 1469.7 ug/mL (Not Estab.)
[2018-07-15 10:37] LABS: HGB A 97.9 % (96.4-98.8); HGB A2 2.1 % (1.8-3.2); HGB SOLUBILITY RESULT Negative (Negative)
== END ==
LOC: LAB 09:12
PROVIDERS: ATTEND Family Medicine Geriatric Medicine
DX: E11.9 Type 2 diabetes mellitus without complications (principal); M10.9 Gout, unspecified; Z79.899 Other long term (current) drug therapy
CPT/HCPCS: 36415; 80048; 82043; 82570; 83020; 84550